=== PATIENT | male | born 1990 | race Caucasian/White ===

== ENCOUNTER 2018-11-16 10:05 | Inpatient (IN) | payer SELFPAY ==
[~2018-11-16] VITALS: Ht 172.7 cm; Wt 59.0 kg
[2018-11-16 10:55] LABS: BASOPHILS % (AUTO) 0.4 % (0.0-5.0); EOSINOPHILS % (AUTO) 0.7 % (0.0-8.0); HEMATOCRIT 44.2 % (42-54); LYMPHOCYTES % (AUTO) 10.5 % (21.0-51.0); MEAN CORPUSCULAR HEMOGLOBIN 30.1 pg (27.0-33.0); MEAN CORPUSCULAR HGB CONC 34.3 g/dL (32.0-36.0); MEAN CORPUSCULAR VOLUME 87.8 fL (79-99); MONOCYTES % (AUTO) 6.8 % (3.0-13.0); NEUTROPHILS % (AUTO) 81.6 % (40.0-77.0); PLATELET COUNT (AUTO) 178 K/uL (130-400); RED BLOOD CELL COUNT(AUTO) 5.03 MIL/uL (4.50-6.20); RED CELL DISTRIBUTION WIDTH 13.6 % (11.0-15.5); WHITE BLOOD COUNT (AUTO) 8.6 K/uL (4.8-10.8)
[2018-11-16] MEDS ORDERED: ONDANSETRON HCL 4 MG/2 ML VIAL ONE ×2 (11:11→13:31)
[2018-11-16 11:12] LABS: POTASSIUM 3.9 mmol/L (3.5-5.1)
[2018-11-16 11:18] LABS: ALBUMIN 3.9 g/dL (3.5-5.0); BILIRUBIN,TOTAL 0.9 mg/dL (0.2-1.0); TOTAL PROTEIN, SERUM 7.8 g/dL (6.0-8.3)
[2018-11-16 12:28] LABS: APPEARANCE,URINE Clear (CLEAR); BILIRUBIN,URINE Negative (NEGATIVE); COLOR,URINE Dark Yellow (YELLOW); GLUCOSE, URINE (UA) Negative (NEGATIVE); KETONES,URINE 40 mg/dL (NEGATIVE); LEUKOCYTE ESTERASE ,URINE Negative (NEGATIVE); NITRATE,URINE Negative (NEGATIVE); OCCULT BLOOD,URINE Negative (NEGATIVE); PH,URINE 5.5 (5.0-8.0); PROTEIN,URINE POS 2+ mg/dL (NEGATIVE)
[2018-11-16 12:53] LABS: BACTERIA,URINE Few /HPF (None Seen); MUCUS,URINE Moderate LPF (None Seen); RBC,URINE None Seen /HPF (0-1)
[2018-11-16] MEDS: SODIUM CHLORIDE 0.9% 1000ML 1,000 ML IV SCH ×2 (14:23→22:04)
[2018-11-16] MEDS ORDERED: LACTULOSE 20 GM/30 ML UDCUP PO PRN (14:30)
[2018-11-16] MEDS ORDERED: VANCOMYCIN PROTOCOL PER PHARMACY IV PRN (14:30)
[2018-11-16] MEDS ORDERED: ACETAMINOPHEN 325 MG TAB PO PRN ×2 (14:30)
[2018-11-16] MEDS ORDERED: ONDANSETRON HCL 4 MG/2 ML VIAL IV PRN (14:30)
[2018-11-16] MEDS ORDERED: DEXAMETHASONE SOD PHOSPHATE 4 MG/ML 1ML VIAL IVP SCH (15:00)
[2018-11-16] MEDS ORDERED: COMPOUND IV REFRIGERATED 1 EACH IVSOLN MISC PRN (15:30)
[2018-11-16] MEDS ORDERED: DEXAMETHASONE SOD PHOSPHATE 10MG/ML 1ML VIAL ONE (15:31)
[2018-11-16] MEDS ORDERED: CEFTRIAXONE SODIUM 1 GM IV SCH (16:00)
[2018-11-16] MEDS ORDERED: VANCOMYCIN 1.25 GM in SODIUM CHLORIDE 0.9% 250 ML IV ONE (16:00)
[2018-11-16] MEDS ORDERED: ACETAMINOPHEN 325 MG TAB ONE (18:24)
[2018-11-16 18:53] VITALS: BP 114/57
[2018-11-16] MEDS: CEFTRIAXONE SODIUM 1 GM IV SCH (22:03)
[2018-11-16] MEDS: DEXAMETHASONE SOD PHOSPHATE 4 MG/ML 1ML VIAL IVP SCH ×2 (22:04→23:41)
[2018-11-16] MEDS ORDERED: FAMO-136 PO (23:21)
[2018-11-16 23:30] VITALS: BP 131/71
[2018-11-17] MEDS: VANCOMYCIN 750MG + NS 250 ML IV SCH ×4 (04:00→17:15)
[2018-11-17 04:09] VITALS: BP 130/60
[2018-11-17] MEDS: SODIUM CHLORIDE 0.9% 1000ML 1,000 ML IV SCH ×4 (04:17→21:56)
[2018-11-17] MEDS: DEXAMETHASONE SOD PHOSPHATE 4 MG/ML 1ML VIAL IVP SCH ×3 (05:45→17:15)
[2018-11-17] MEDS ORDERED: PROMETHAZINE HCL 25 MG/ML 1ML AMPULE IM PRN (06:30)
[2018-11-17 06:43] LABS: BASOPHILS % (AUTO) 0.4 % (0.0-5.0); HEMATOCRIT 39.5 % (42-54); LYMPHOCYTES % (AUTO) 11.8 % (21.0-51.0); MEAN CORPUSCULAR HEMOGLOBIN 30.3 pg (27.0-33.0); MEAN CORPUSCULAR HGB CONC 34.3 g/dL (32.0-36.0); MEAN CORPUSCULAR VOLUME 88.2 fL (79-99); MONOCYTES % (AUTO) 4.4 % (3.0-13.0); NEUTROPHILS % (AUTO) 83.4 % (40.0-77.0); PLATELET COUNT (AUTO) 172 K/uL (130-400); RED BLOOD CELL COUNT(AUTO) 4.48 MIL/uL (4.50-6.20); RED CELL DISTRIBUTION WIDTH 13.2 % (11.0-15.5); WHITE BLOOD COUNT (AUTO) 7.7 K/uL (4.8-10.8)
[2018-11-17 06:48] LABS: CREATININE 1.4 mg/dL (0.5-1.5); POTASSIUM 3.7 mmol/L (3.5-5.1)
[2018-11-17 07:21] LABS: HEPATITIS A ANTIBODY IGM Negative (Negative); HEPATITIS B CORE IGM Negative (Negative); HEPATITIS Bs ANTIGEN SCREEN P Negative (Negative)
[2018-11-17 08:00] VITALS: BP 136/69
--- NOTE | 2018-11-17 08:22 | NUR ---
PROCEDURE PATIENT SCHEDULED FOR LUMBAR PUNCTURE. SPOKE WITH MARTIN NAIK REGARDING PROCEDURE. NO ATTEMPTS MADE BY ER OR PRIMARY PHYSICIANS. DR Cj ROSARIO NOTIFED AND STATED AN ATTEMPT NEEDS TO BE MADE FIRST PRIOR RADIOLOGY CONSULT FOR LUMBAR PUNCTURE. PROCEURE OUTCOME REPORTED TO MARTIN NAIK.
[2018-11-17] MEDS: FAMOTIDINE/PF 20 MG/2 ML VIAL IV SCH (08:55)
[2018-11-17] MEDS: CEFTRIAXONE SODIUM 1 GM IV SCH ×2 (08:55→21:56)
[2018-11-17] MEDS ORDERED: LIDOCAINE HCL MPF 1% 5ML VIAL ONE (09:24)
[2018-11-17] MEDS ORDERED: LIDOCAINE HCL 1% 20 ML VIAL INJ SCH (09:30)
[2018-11-17 10:26] LABS: GLUCOSE, CSF 75 mg/dL (40-70); TOTAL PROTEIN, CSF 50 mg/dL (15-45)
[2018-11-17 10:38] LABS: CSF TUBE NUMBER TUBE NO.1
[2018-11-17 10:39] LABS: APPEARANCE,CSF CLEAR (CLEAR); APPEARANCE2,CSF CLEAR (CLEAR); COLOR,CSF COLORLESS (COLORLESS); CSF 2ND TUBE NUMBER 3; RED BLOOD CELL1,CSF 29 CMM (0-0); WHITE BLOOD CELL1,CSF 595 CMM (0-5)
[2018-11-17 10:40] LABS: COLOR2,CSF COLORLESS (COLORLESS)
[2018-11-17 11:00] VITALS: BP 128/68
[2018-11-17 11:26] LABS: LYMPHOCYTES1,CSF 17 %; MONOCYTES1,CSF 4 %; NEUTROPHILS1,CSF 79 %
[2018-11-17 11:28] LABS: CSF LYMPHOCYTES2 30 %; MONOCYTES2,CSF 6 %; NEUTROPHILS2,CSF 64 %
--- NOTE | 2018-11-17 14:17 | NUR ---
DCP CM met with pt discussed dc plans. Pt is independent prior to admission lives at home with life partner. Denies any equipments/services. Pt feel safe to go back home, still drives, life partner able to assist with transportation and needs as necessary. DC plan to home once stable. CM to cont to follow up. Addendum: 11/17/18 at 1418 by BETHANY MILTON LVN CM Amended: Links added.
[2018-11-17 16:00] VITALS: BP 121/78
[2018-11-17 20:00] VITALS: BP 127/69
[2018-11-18] VITALS: BP 123/80
[2018-11-18] MEDS: DEXAMETHASONE SOD PHOSPHATE 4 MG/ML 1ML VIAL IVP SCH ×3 (00:42→12:27)
[2018-11-18 04:00] VITALS: BP 126/75
[2018-11-18] MEDS: VANCOMYCIN 750MG + NS 250 ML IV SCH ×2 (05:13)
[2018-11-18] MEDS: SODIUM CHLORIDE 0.9% 1000ML 1,000 ML IV SCH ×3 (05:14→21:49)
[2018-11-18 07:30] VITALS: BP 133/79
[2018-11-18] MEDS: CEFTRIAXONE SODIUM 1 GM IV SCH ×2 (09:26→21:49)
[2018-11-18] MEDS: FAMOTIDINE/PF 20 MG/2 ML VIAL IV SCH (09:26)
[2018-11-18 11:00] VITALS: BP 128/73
[2018-11-18 16:00] VITALS: BP 129/78
[2018-11-18] MEDS: VANCOMYCIN 1GM+NS 250ML 250 ML IV SCH (18:02)
[2018-11-18 20:00] VITALS: BP 127/75
[2018-11-19] VITALS: BP 128/83
[2018-11-19] MEDS: SODIUM CHLORIDE 0.9% 1000ML 1,000 ML IV SCH (02:47)
[2018-11-19 04:00] VITALS: BP 122/75
[2018-11-19] MEDS: VANCOMYCIN 1GM+NS 250ML 250 ML IV SCH (04:51)
[2018-11-19] MEDS ORDERED: SIMETHICONE 80 MG TAB.CHEW PO PRN (07:45)
[2018-11-19 08:00] VITALS: BP 142/89
[2018-11-19] MEDS: CEFTRIAXONE SODIUM 1 GM IV SCH (09:20)
[2018-11-19] MEDS: FAMOTIDINE/PF 20 MG/2 ML VIAL IV SCH (09:20)
--- NOTE | 2018-11-19 11:20 | NUR ---
Nutrition intervention: Nutrition notification for low BMI, 19.8. Pt monitored for suspected meningitis, currently on regular diet therapy. Pt reports sensitivity to certain foods. Pt unable to tolerate acidic foods such as citrus and marinara sauce (tomato). Pt with unintended wt loss in the past wk since he's been sick. Pt reports no appetite the moment d/t gas- is currently being treated medically. Pt with no nutritional questions or concerns awaiting CSF results. Recommendations: Soft/bland diet to accommodate nutritional needs. Consult RD as nutrition concerns arise. Addendum: 11/19/18 at [address] RD Amended: Links added.
[2018-11-19 12:00] VITALS: BP 130/84
--- NOTE | 2018-11-19 13:50 | NUR ---
REPORT Received report from morning nurse Beatriz Lew. Patient in bed in no distress. Pending Dr. Dillon to round.
[2018-11-19 16:00] VITALS: BP 134/84
--- NOTE | 2018-11-19 17:41 | NUR ---
DISCHARGE AGAINST MEDICAL ADVICE Dr. Dillon did rounds and stated patent to continue receiving IV antibiotics. No clearance from Infectious Disease to discharge. No discharge orders. Patient requested to leave. Dr. Dillon was notified. No change in plan of care from Dr. Dillon. Nurse Practitioner JOSE ALEJANDRO was notified. Dr. Villalobos was notified. AJ came to talk to patient. A communication between both Drs. Dillon and Griselda and no change in plan of care. No orders for discharge. Patient informed. Decided to leave against medical advice. Signed form and in chart. Dr. Villalobos aware.
== END 2018-11-19 17:35 | disposition left against medical advice (07) | DRG 871 ==
LOC: EDH 10:05 → EDHIP 10:06 → 3AH 19:02
PROVIDERS: ADMIT Internal Medicine; ATTEND Internal Medicine
PROC: 00JU3ZZ Inspection of Spinal Canal, Percutaneous Approach (ICD-10-PCS; principal; 2018-11-17)
DX: A41.9 Sepsis, unspecified organism (principal); G00.9 Bacterial meningitis, unspecified; N39.0 Urinary tract infection, site not specified; N17.9 Acute kidney failure, unspecified; F12.10 Cannabis abuse, uncomplicated; K82.8 Other specified diseases of gallbladder; M43.6 Torticollis; H53.149 Visual discomfort, unspecified; R16.0 Hepatomegaly, not elsewhere classified; R16.1 Splenomegaly, not elsewhere classified; F19.10 Other psychoactive substance abuse, uncomplicated; R51 Headache; N14.1 Nephropathy induced by other drugs, medicaments and biological substances; T39.395A Adverse effect of other nonsteroidal anti-inflammatory drugs [NSAID], initial encounter; Y92.89 Other specified places as the place of occurrence of the external cause; Z91.19 Patient's noncompliance with other medical treatment and regimen
CPT/HCPCS: 36415; 70450; 76700; 80048; 80053; 80074; 80202; 81001; 82150; 82945; 83690; 84157; 85025; 86641; 86701; 87040; 87071; 87147; 87205; 87390; 87483; 89051; G0378; J0696; J1100; J2405; J3370; J3490; J7030